=== PATIENT | female | born 1935 | race Caucasian/White ===

== ENCOUNTER → 2017-01-16 | Outpatient (CLI) | payer MEDICARE, BC ==
[~2017-01-16] MED LIST: ALEVE PO; AMLOPIDINE PO; ASPIR-LOW81 MG PO; COLACE50 MG PO; DETROL PO; DETROL1 MG PO; FLEXERIL5 MG PO; HCTZ 25MG TAB25 MG PO; HCTZ PO; KLOR-CON 1010 MEQ PO; MOTRIN 200200 MG/TAB PO; MOTRIN SUSP20 MG/ML PO; NORVASC 10MG10 MG PO; PERCOCET 325 MG1 TA2 PO; PERCOCET 325 MG1 TAB PO; PREMARIN0.625 MG PO; SYNTHROID PO; SYNTHROID0.125 MG/T PO; ZANTAC PO; ZOLOFT 100MG100 MG PO
== END ==
LOC: COL.RAD 14:17
DX: M16.11 Unilateral primary osteoarthritis, right hip (principal)
CPT/HCPCS: J3301; Q9967

== ENCOUNTER → 2017-02-21 | Outpatient (CLI) | payer MEDICARE, BC | LOC: COL.RAD 10:17 | DX: G89.18 Other acute postprocedural pain (principal); R19.00 Intra-abdominal and pelvic swelling, mass and lump, unspecified site | CPT/HCPCS: J3301; Q9967 ==

== ENCOUNTER 2018-02-06 18:57 | Emergency (ER) | payer MEDICARE, BC ==
[~2018-02-06] VITALS: Ht 149.9 cm; Wt 74.5 kg
[2018-02-06] MEDS ORDERED: DITROPAN XL 5MG5 M1 PO (19:23)
[2018-02-06] MEDS ORDERED: PRILOTC (19:23)
[2018-02-06] MEDS ORDERED: [UNRECOGNIZED DRUG - OTHER] MM (19:24)
[2018-02-06] MEDS ORDERED: OXY IR5 MG PO (19:24)
[2018-02-06] MEDS ORDERED: KLOR-CON 1010 MEQ PO (19:25)
[2018-02-06] MEDS ORDERED: PRESERVISION1 SGL PO (19:25)
[2018-02-06] MEDS ORDERED: ZOLOFT 100MG100 MG PO (19:25)
[2018-02-06] MEDS ORDERED: LYRICA 50MG CAP50 MG PO (19:25)
[2018-02-06] MEDS ORDERED: ZILRETTA32 MG (19:26)
[2018-02-06] MEDS ORDERED: COUMADIN4 MG PO (19:26)
[2018-02-06] MEDS ORDERED: TYLENOL 325MG325 MG PO (19:27)
[2018-02-06] MEDS ORDERED: PROAIR HFA0.09 MG/AC IH (19:27)
[2018-02-06] MEDS ORDERED: VITAMIN D 1001000 IU (19:28)
[2018-02-06] MEDS ORDERED: FLEXERIL 1010 MG/TAB PO (19:28)
[2018-02-06] MEDS ORDERED: DULCOLAX STOOL100 MG PO (19:28)
[2018-02-06] MEDS ORDERED: VITAMIN B-1000 MCG/T PO (19:28)
[2018-02-06] MEDS ORDERED: COREG 6.256.25 MG/TA PO (19:28)
[2018-02-06] MEDS ORDERED: LASIX 20MG TABL20 MG PO (19:29)
[2018-02-06] MEDS ORDERED: FLONASE SENSIM9.9 ML NS (19:29)
[2018-02-06] MEDS ORDERED: NEURONTIN100 MG/CAP PO (19:29)
[2018-02-06] MEDS ORDERED: COZAAR 50MG50 MG/TAB PO (19:29)
[2018-02-06] MEDS ORDERED: SYNTHROID 0.10.15 MG PO (19:29)
[2018-02-06] MEDS ORDERED: REMERON 15M15 MG/TA1 PO (19:30)
[2018-02-06 20:09] LABS: BASO # 0.1 (0.0-0.2); BASO % 0.7 % (0.0-2.0); EOS # 0.1 (0.0-0.7); EOS % 1.8 % (0-4.0); GRAN # 5.3 (1.4-6.5); GRAN % 74.9 % (42.2-75.2); LYMPH # 0.8 (1.2-3.4); LYMPH % 11.1 % (20.0-51.0); MEAN CELL VOLUME 79 fl (80.0-100.0); MEAN CORPUSCULAR HGB CONC 31 g/dl (33.0-37.0); MEAN PLATELET VOLUME 9.1 fl (7.4-10.4); MONO # 0.8 (0.1-0.6); MONO % 10.8 % (1.7-9.3); PLATELET COUNT 231 K/mm3 (130-400); RED BLOOD COUNT 2.86 M/mm3 (4.10-5.30); REDCELL DISTRIBUTION WIDTH-CV 17.7 % (11.5-14.5)
[2018-02-06 20:11] LABS: HEMATOCRIT 22.7 % (37.0-47.0); MEAN CORPUSCULAR HEMOGLOBIN 24 pg (27.0-31.0)
[2018-02-06 20:16] LABS: INR 2.3 (0.8-3.0); PROTHROMBIN TIME 27.6 SECONDS (9.7-12.8)
[2018-02-06 20:20] LABS: ALBUMIN 3.5 gm/dL (3.5-5.0); BILIRUBIN,TOTAL 0.3 mg/dL (0.0-1.0); CALCIUM 8.6 mg/dL (8.4-10.2); CREATININE, serum 1.95 mg/dL (0.52-1.25); POTASSIUM 4.9 mmol/L (3.4-5.0); TOTAL PROTEIN 7.1 gm/dL (6.4-8.2)
[2018-02-06 20:28] LABS: TROPONIN-I 0.015 ng/mL (0.000-0.034)
[2018-02-06 20:34] LABS: ERYTHROCYTE SEDIMENTATION RATE > 140 mm/hr (0-30)
[2018-02-06 20:39] LABS: C-REACTIVE PROTEIN 14.1 mg/dL (0.0-0.9)
[2018-02-06 20:51] LABS: COLLECTION METHOD CLEAN CATCH
[2018-02-06 21:11] LABS: MUCOUS Present /lpf; PH 6 (5-8); SQUAMOUS EPITHELIAL 0-2 /hpf; URINE APPEARANCE Clear; URINE BACTERIA None Seen /hpf; URINE BILIRUBIN Negative (NEGATIVE); URINE BLOOD 2+ (NEGATIVE); URINE COLOR Yellow; URINE GLUCOSE Negative (NEGATIVE); URINE KETONE Negative (NEGATIVE); URINE LEUKOCYTE ESTERASE Negative (NEGATIVE); URINE NITRATE Negative (NEGATIVE); URINE PROTEIN(semi-quant) Negative (NEGATIVE); URINE UROBILINOGEN Negative (NEGATIVE)
[2018-02-06 23:24] VITALS: BP 152/57; PULSE 74; TEMP 97.9
== END 2018-02-06 23:57 | disposition short-term general hospital (02) ==
LOC: COL.ER 18:57
PROVIDERS: Emergency Medicine
DX: M31.6 Other giant cell arteritis (principal); D64.9 Anemia, unspecified; I48.91 Unspecified atrial fibrillation; I10 Essential (primary) hypertension; J45.909 Unspecified asthma, uncomplicated
CPT/HCPCS: J7512